=== PATIENT | female | born 1950 | race Two or more races ===

== ENCOUNTER 2024-07-18 13:33 | Emergency (ER) | payer MEDICAID, OTHER ==
[~2024-07-18] VITALS: Ht 162.6 cm; Wt 74.2 kg
[2024-07-18 15:05] VITALS: BP 146/88; PULSE 76; RESP 16; TEMP 98.2; O2SAT 97
--- NOTE | 2024-07-18 15:08 | ED.PDOC ---
Back pain HPI HPI Comments A 73 YEAR OLD FEMALE PRESENTS TO THE ED WITH CHIEF COMPLAINT OF BACK PAIN. SON REPORTS THAT THE PATIENT HAS BEEN EXPERIENCING RIGHT LOWER BACK PAIN FOR THE PAST 4 MONTHS, HOWEVER, SHE STARTED TO EXPERIENCE HER PAIN RADIATE DOWN HER WHOLE LEG FOR THE PAST 3 DAYS. PATIENT DENIES ANY NUMBNESS, CHEST PAIN, WEAKNESS, SOB, OR FALL/HEAD INJURY. NO OTHER SYMPTOMS REPORTED AT THIS TIME OF CARE. Chief Complaint: Lower Extremity Time Seen by MD: 15:03 Primary Care Provider: PORFIRIO Hernandez Notes: Nurses Notes, Medications, Allergies Allergies: Coded Allergies: NO KNOWN ALLERGIES (Unverified , 07/18/24) Information Source: Patient Mode of Arrival: Ambulatory Timing: Days Duration: Since onset Location of Back pain: (R) Lower back Radiates to: Posterior: (R) Buttocks, (R) Foot, (R) Thigh Radiates to: Lateral: (R) Buttocks, (R) Foot, (R) Thigh Severity: Moderate Prehospital treatment: None Quality: Aching, Burning, Sharp Onset: Spontaneous History of: None Modifying Factors: Movement, Twisting, Walking Associated signs and symptoms: None Past Medical History PAST MEDICAL HISTORY: Denies Surgical History (Other): BILATERAL KNEE REPLACEMENT, RT ROTATOR CUFF SURGERY 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 Social History Smoker: Non-Smoker Alcohol: Denies ETOH Use Drugs: Denies Drug Use Lives In: Home Constitutional: denies: chills, diaphoresis, fatigue, fever, malaise, sweats, weakness, others EENTM: denies: blurred vision, double vision, ear bleeding, ear discharge, ear drainage, ear pain, ear ringing, eye pain, eye redness, hearing loss, mouth pain, mouth swelling, nasal discharge, nose bleeding, nose congestion, nose pain, photophobia, tearing, throat pain, throat swelling, voice changes, others Cardiovascular: denies: chest pain, dizzy spells, diaphoresis, Dyspnea on exertion, edema, irregular heart beat, left arm pain, lightheadedness, palpitations, PND, syncope, others Gastrointestinal: denies: abdomen distended, abdominal pain, blood streaked bowels, constipated, diarrhea, dysphagia, difficulty swallowing, hematemesis, melena, nausea, poor appetite, poor fluid intake, rectal bleeding, rectal pain, vomiting, others Genitourinary: denies: abnormal vagina bleeding, burning, dyspareunia, dysuria, flank pain, frequency, hematuria, incontinence, pain, , vagina discharge, urgency, others Neurological: denies: dizziness, fainting, headache, left sided numbness, left sided weakness, numbness, paresthesia, pre-existing deficit, right sided numbness, right sided weakness, seizure, speech problems, tingling, tremors, weakness, others Musculoskeletal: reports: back pain, muscle pain, others (LOWER BACK PAIN, RIGHT LEG PAIN); denies: gout, joint pain, joint swelling, muscle stiffness, neck pain Integumetry: denies: bruises, change in color, change in hair/nails, dryness, laceration, lesions, lumps, rash, wounds, others Allergic/Immunocompromised: denies: Difficulty Healing, Frequent Infections, Hives, Itching, others Hematologic/Lymphatic: denies: anemia, blood clots, easy bleeding, easy bruising, swollen glands, others Endocrine: denies: excessive hunger, excessive sweating, excessive thirst, excessive urination, flushing, intolerance to cold, intolerance to heat, unexplained weight gain, unexplained weight loss, others Psychiatric: denies: anxiety, bipolar disorder, depression, hopeless, panic disorder, schizophrenia, sleepless, suicidal, others All Other Systems: Reviewed and Negative Physical Exam General Appearance: No Apparent Distress, Normal HEENT: Normal ENT Inspection, PERRL/EOMI, Pharynx Normal, TMs Normal Neck: Full Range of Motion, Non-Tender, Normal, Normal Inspection Respiratory: Chest Non-Tender, Lungs Clear, No Accessory Muscle Use, No Respiratory Distress, Normal Breath Sounds Cardiovascular: No Edema, No JVD, No Murmur, No Gallop, Normal Peripheral Pulses, Regular Rate/Rhythm Breast Exam: Deferred Gastrointestinal: No Organomegaly, Non Tender, No Pulsatile Mass, Normal Bowel Sounds, Soft Genitalia: Deferred Pelvic: Deferred Rectal: Deferred Extremities: No calf tenderness, Normal capillary refill, Normal inspection, Normal range of motion, Non-tender, No pedal edema Musculoskeletal : Location: Bilateral Extremity Location: Back Apperance: Tenderness: Moderate (TENDERNESS LOWER BACK, NO BONY TENDERNESS, SWELLING AND DEFORMITY. ) Neurologic: Alert, data solutions architect II-XII nml as Tested, No Motor Deficits, Normal Affect, Normal Mood, No Sensory Deficits Cerebellar Function: Normal Reflexes: Normal Skin: Dry, Normal Color, Warm Peripheral Pulses: 2+ carotid (R), 2+ carotid (L), 2+ dorsalis pedis (R), 2+ dorsalis pedis (L) Lymphatic: No Adenopathy Was a procedure done? Was a procedure done?: No Back Pain Differential Dx Differential Diagnosis: Musculoskeletal Pain, Strain, Other (DDD OF LOW BACK ) X-Ray, Labs, Meds, VS Vital Signs Date Time Temp Pulse Resp B/P (MAP) Pulse Ox O2 Delivery O2 Flow Rate FiO2 07/18/24 15:05 76 16 97 Room Air 07/18/24 15:05 98.2 76 16 146/88 (107) 97 98.2 07/18/24 13:45 97.8 67 18 108/47 (67) 95 97.8 PATIENT: ANA MARIA CALDWELLACCT: [id number]: [id number] : 1950 LOC: ER ROOM / BED: / AGE / SEX: 73 / F ADM STATUS: REG ER SERVICE [id number] ORDERING PHYSICIAN: SUJIT AMARAL PROCEDURE(s): LS2CT - LS SPINE WO CONTRAST REASON: RIGHT LOWER BACK PAIN TO RIGHT LOWER LEG ORDER NUMBER(s): [id number], ACCESSION NUMBER(s): [id number] Procedure: CT LS SPINE WO CONTRAST 07/18/2024 02:45 PM Indication: RIGHT LOWER BACK PAIN TO RIGHT LOWER LEG Comparison Study: None. Technique: Axial images were obtained and reformatted in coronal and sagittal planes. All CT scans at this medical facility are performed using dose modulation techniques as appropriate to a performed exam including the following: Automated exposure control was utilized; adjustment of the MA and/or KV according to patient size; and use of iterative reconstruction technique. CT Dose: CTDI volume is 24 mGy. Dose-length product is 129 mGy*cm FINDINGS: Bones: The vertebra are normal in height. Mild degenerative grade 1 anterolisthesis of L4 on L5 without pars defects. Multilevel degenerative disc disease and posterior facet arthropathy of the lumbar spine noted. Prominent hook shaped non bridging posterior endplate osteophytes are noted at L1-L2 and L2-L3 levels moderate central canal stenosis. The sacroiliac joints are maintained. Soft tissues: Paraspinal soft tissues are within normal limits. Other: None. IMPRESSION: 1. No acute osseous abnormality. 2. Advanced multilevel degenerative disc disease and posterior facet arthropathy of the lumbar spine most prominent L4-L5 with suggestion of nerve impingement. These can be better evaluated by MRI on a nonemergent basis if clinically warranted. ATED BY: DEBORAH STRICKLAND MD DICTATED DATE/TIME: 07/18/241612 SIGNED BY: DEBORAH STRICKLAND MD SIGNED DATE/TIME: 07/18/241612 CC: X-Ray, Labs, Meds, VS Comment EXTERNAL MEDICAL RECORDS REVIEWED: [NONE] INDEPENDENT HISTORIANS: [NONE] SOCIAL DETERMINANTS OF HEALTH: [NONE] LABS ORDERED: NONE REVIEWED AND INTERPRETED RESULTS: NONE IMAGING ORDERED: L-S SPINE CT TREATMENTS ORDERED: NORCO 5/325MG PROCEDURES PERFORMED: NONE CRITICAL CARE TIME: NONE I HAVE DISCUSSED THE PATIENT WITH THE ATTENDING PHYSICIAN DR. KENNEDY AND HE AGREES WITH THE PATIENT'S PLAN OF CARE AND DISPOSITION. BASED ON HISTORY OF PRESENT ILLNESS, AND PHYSICAL EXAM, PATIENT WILL BE DISCHARGED HOME. DISCUSSED PLAN FOR DISCHARGE HOME WITH RX [[facility]]. MEDICATION WARNINGS GIVEN. SHARED DECISION MAKING: DISCUSSED WITH PATIENT THAT THEIR WORKUP WAS NORMAL. PATIENT INSTRUCTED TO FOLLOW UP WITH PRIMARY CARE PROVIDER IN 1-2 DAYS FOR RE- EVALUATION OF SYMPTOMS. PATIENT VERBALIZES UNDERSTANDING TO RETURN TO ED FOR NEW OR WORSENING SYMPTOMS OR IF FOLLOW UP WITH PCP CANNOT BE OBTAINED. PATIENT FEELS COMFORTABLE GOING HOME AT THIS TIME. ALL QUESTIONS ADDRESSED AT TIME OF DISCHARGE. Time of 1ST Reevaluation: 16:51 Reevaluation 1ST: Improved Patient Education/Counseling: Diagnosis, Treatment, Need For Follow Up Family Education/Counseling: Diagnosis, Treatment, Need For Follow Up Medical Screening: No EMC Exist At This Time Departure 1 Departure Time of Disposition: 16:51 Impression: Primary Impression: DDD (degenerative disc disease), lumbar Qualified Codes: M51.369 - Other intervertebral disc degeneration, lumbar region without mention of lumbar back pain or lower extremity pain Additional Impression: Lumbar radiculopathy Disposition: 01 HOME / SELF CARE / HOMELESS Condition: Stable Additional Instructions: F/U PCP IN 2 DAYS RECHECK. IF CONDITION BECOME WORSE, RETURN TO ED DIANNA. e-Prescriptions Tramadol HCl (Tramadol HCl) 50 Mg Tab 50 MG PO BID, #20 TAB Prov: SUJIT AMARAL 07/18/24 Discharged With: Self, Relative Critical Care Note Critical Care Time?: No Stability Stability form required: No Heart Score Heart Score: Heart Score Response (Comments) Value History N/A 0 EKG N/A 0 Age N/A 0 Risk Factors N/A 0 Troponin N/A 0 Total 0 I personally scribed for SUJIT AMARAL ([email or web address]) on 07/18/24 at 15:08. Electronically submitted by Simon Castorena ([email or web address]). I personally scribed for SUJIT AMARAL ([email or web address]) on 07/18/24 at 16:47. Electronically submitted by Simon Castorena ([email or web address]). SUJIT AMARAL July 18, 2024 15:08
[2024-07-18] MEDS: HYDROcodone-ACET 5/325MG TAB PO ONE (15:09)
--- NOTE | 2024-07-18 16:15 | DVH ---
Procedure: CT LS SPINE WO CONTRAST 07/18/2024 02:45 PM Indication: RIGHT LOWER BACK PAIN TO RIGHT LOWER LEG Comparison Study: None. Technique: Axial images were obtained and reformatted in coronal and sagittal planes. All CT scans at this medical facility are performed using dose modulation techniques as appropriate t o a performed exam including the following: Automated exposure control was utilized; adjustment of th e MA and/or KV according to patient size; and use of iterative reconstruction technique. CT Dose: CTDI volume is 24 mGy. Dose-length product is 129 mGy*cm FINDINGS: Bones: The vertebra are normal in height. Mild degenerative grade 1 anterolisthesis of L4 on L5 with out pars defects. Multilevel degenerative disc disease and posterior facet arthropathy of the lumbar spine noted. Prominent hook shaped non bridging posterior endplate osteophytes are noted at L1-L2 an d L2-L3 levels moderate central canal stenosis. The sacroiliac joints are maintained. Soft tissues: Paraspinal soft tissues are within normal limits. Other: None. IMPRESSION: 1.No acute osseous abnormality. 2.Advanced multilevel degenerative disc disease and posterior facet arthropathy of the lumbar spine most prominent L4-L5 with suggestion of nerve impingement. These can be better evaluated by MRI on a nonemergent basis if clinically warranted.
[2024-07-18] MEDS ORDERED: TRAM-626 PO (16:54)
== END 2024-07-18 17:00 | disposition home or self-care (01) ==
LOC: ER 13:47
DX: M51.16 Intervertebral disc disorders with radiculopathy, lumbar region (principal); Z98.890 Other specified postprocedural states
CPT/HCPCS: 72131